=== PATIENT | male | born 1945 | race Caucasian/White ===

== ENCOUNTER → 2018-02-12 | Outpatient (CLI) | payer OTHER, MEDICARE | LOC: BMCIMAGING 13:35 | PROVIDERS: ATTEND Emergency Medicine | DX: S42.022A Displaced fracture of shaft of left clavicle, initial encounter for closed fracture (principal) ==

== ENCOUNTER 2018-02-18 10:39 | Day surgery (SDC) | payer OTHER, MEDICARE ==
--- NOTE | 2018-02-18 11:10 | PDHPUP ---
History & Physical Update H&P update statement: This history and physical update is based on an assessment of the patient which was completed after admission or registration (within 24 hours), but prior to the surgery/procedure. H&P update: no change in patient's condition since H&P completed
[2018-02-18] MEDS ORDERED: LR 1,000 ML IV SCH (11:26)
[2018-02-18] MEDS ORDERED: ACETAMINOPHEN 500 MG TAB PO ONE (11:26)
[2018-02-18] MEDS ORDERED: LR 1,000 ML IV ONE (11:28)
[2018-02-18] MEDS ORDERED: ceFAZolin 2 GM/DEXTROSE 100 ML IV ONE (11:45)
[2018-02-18] MEDS ORDERED: BACITRACIN 50,000 UNITS/10 ML SYR IRR ONE (13:42)
[2018-02-18] MEDS ORDERED: POLYMYXIN B SULFATE 500,000 UNIT/10 ML SYR IRR ONE (13:42)
[2018-02-18] MEDS ORDERED: BUPIVACAINE/EPI 0.5% 30 ML SDV ONE (13:42)
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
[2018-02-18] MEDS ORDERED: LIDOCAINE 2% 5 ML SDV ONE (14:26)
[2018-02-18] MEDS ORDERED: fentaNYL 100 MCG/2 ML INJ ONE ×2 (14:27→14:57)
[2018-02-18] MEDS ORDERED: PROPOFOL 200 MG/20 ML VIAL ONE (14:28)
[2018-02-18] MEDS ORDERED: DEXAMETHASONE 4 MG/ML VIAL ONE (14:49)
[2018-02-18] MEDS ORDERED: ONDANSETRON 4 MG/2 ML VIAL ONE (14:49)
[2018-02-18] MEDS ORDERED: ESMOLOL HCL 100 MG/10 ML VIAL IV ONE (15:04)
[2018-02-18] MEDS ORDERED: HYDROCODONE/APAP 5/325 TAB PO PRN ×2 (15:32→15:54)
[2018-02-18] MEDS ORDERED: PROMETHAZINE HCL 25 MG/ML INJ IVP PRN (15:54)
[2018-02-18] MEDS ORDERED: ALBUTEROL 3 ML DEYVIAL IH PRN (15:54)
[2018-02-18] MEDS ORDERED: ACETAMINOPHEN 500 MG TAB PO PRN (15:54)
[2018-02-18] MEDS ORDERED: fentaNYL 100 MCG/2 ML INJ IVP PRN (15:54)
[2018-02-18] MEDS ORDERED: NALOXONE HCL 0.4 MG/ML INJ IVP PRN (15:54)
[2018-02-18] MEDS ORDERED: oxyCODONE IR 5 MG TAB PO PRN (15:54)
[2018-02-18] MEDS ORDERED: LABETALOL HCL 5 MG/ML 20 ML MDV IVP PRN (15:54)
[2018-02-18] MEDS ORDERED: MEPERIDINE 25 MG/0.5 ML AMP IVP PRN (15:54)
[2018-02-18] MEDS ORDERED: DIAZEPAM 5 MG/ML 1 ML SYR IVP PRN (15:54)
[2018-02-18] MEDS ORDERED: ONDANSETRON 4 MG/2 ML VIAL IVP PRN (15:54)
--- NOTE | 2018-02-18 15:58 | POSTANESTH ---
Post Anesthetic Evaluation Cardiovascular Status: Normal, Stable Respiratory Status: Normal, Stable Level of Consciousness/Mental Status: Can Participate in Eval, Mildly Sleepy, Arousable Pain Control: Adequate, Prn Tx Ordered Nausea/Vomiting Control: Adequate, Prn Tx Ordered Complications Possibly Related to Anesthesia: None Noted
[2018-02-18 18:27] VITALS: BP 120/68
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
== END 2018-02-18 17:58 | disposition home or self-care (01) ==
LOC: FSGY 10:39
PROVIDERS: ATTEND Orthopaedic Surgery
PROC: 0PSB04Z Reposition Left Clavicle with Internal Fixation Device, Open Approach (ICD-10-PCS; principal; 2018-02-18 13:15)
DX: S42.002A Fracture of unspecified part of left clavicle, initial encounter for closed fracture (principal); V18.2XXA Unspecified pedal cyclist injured in noncollision transport accident in nontraffic accident, initial encounter; Y93.55 Activity, bike riding; F32.9 Major depressive disorder, single episode, unspecified
CPT/HCPCS: C1713; J0690; J1100; J2405; J2704; J3010

== ENCOUNTER → 2018-04-06 | Outpatient (CLI) | payer OTHER, MEDICARE | LOC: BMCIMAGING 13:49 | PROVIDERS: ATTEND Orthopaedic Surgery | DX: S42.022D Displaced fracture of shaft of left clavicle, subsequent encounter for fracture with routine healing (principal) ==